=== PATIENT | female | born 1960 | race Caucasian/White ===

== ENCOUNTER 2017-07-03 20:49 | Emergency (ER) | payer MEDICAID ==
[~2017-07-03] VITALS: Ht 160 cm; Wt 85.0 kg
[~2017-07-03 20:49] MED LIST: MULT-1085 PO; POLY17PO10 PO
[2017-07-03 21:03] VITALS: BP 148/74
[2017-07-03] MEDS ORDERED: ipratropium/albuterol 3ml nebule NEB ONE (21:55)
[2017-07-03] MEDS ORDERED: ALBU6.7H INH (22:38)
[2017-07-03] MEDS ORDERED: AMOX-422 PO (22:38)
[2017-07-03] MEDS ORDERED: PRED20TA PO (22:38)
== END 2017-07-03 22:45 | disposition home or self-care (01) ==
LOC: ER 20:50
DX: J20.9 Acute bronchitis, unspecified (principal); F17.200 Nicotine dependence, unspecified, uncomplicated; Z79.899 Other long term (current) drug therapy
CPT/HCPCS: 71046; 94640; 94760; 99284

== ENCOUNTER 2020-06-27 22:23 | Emergency (ER) | payer MEDICAID, OTHER ==
[~2020-06-27] VITALS: Ht 160 cm; Wt 90.9 kg
[~2020-06-27 22:23] MED LIST changes: +ALBU6.7H9 INH
[2020-06-27 23:21] LABS: CLARITY,URINE CLEAR (Clear); COLOR,URINE YELLOW (Yellow); GLUCOSE, URINE NEGATIVE (Neg); KETONES,URINE NEGATIVE (Neg); LEUKOCYTE ESTERASE ,URINE SMALL (Neg); NITRITES, URINE NEGATIVE (Neg); OCCULT BLOOD,URINE SMALL (Neg); PH,URINE 6.5 (4.8-8.0); PROTEIN,URINE TRACE mg/dl (Neg)
[2020-06-27 23:26] LABS: UA COLLECTION TYPE CLN CATCH MIDSTREAM
[2020-06-27 23:27] LABS: BACTERIA,URINE FEW /HPF (Neg); SQUAMOUS EPITHELIAL CELL,UR FEW /LPF (FEW); WBC,URINE 0-4 /HPF (0-4)
[2020-06-27 23:51] LABS: BASOPHILS # (AUTO) 0.1 X10'3 (0-0.2); BASOPHILS % (AUTO) 0.5 % (0-1); EOSINOPHILS # (AUTO) 0.3 X10'3 (0-0.9); EOSINOPHILS % (AUTO) 2.3 % (0-6); HEMATOCRIT 36.5 % (35.0-45.0); HEMOGLOBIN 12.1 g/dl (12.0-16.0); LYMPHOCYTES # (AUTO) 2.1 X10'3 (1.1-4.8); LYMPHOCYTES % (AUTO) 17.8 % (21-51); MEAN CORPUSCULAR HEMOGLOBIN 29.8 PG (27.0-31.0); MEAN CORPUSCULAR HGB CONC 33.2 g/dL (33.0-36.5); MEAN CORPUSCULAR VOLUME 89.8 FL (78-98); MEAN PLATELET VOLUME 6.8 FL (7.4-10.4); MONOCYTES # (AUTO) 1.3 X10'3 (0-0.9); NEUTROPHILS % (AUTO) 68.4 % (42-75); PLATELET COUNT 339 X10'3 (140-440); RED BLOOD COUNT 4.07 X10'6 (4.20-5.60); RED CELL DISTRIBUTION WIDTH 13.6 % (11.5-14.5); WHITE BLOOD COUNT 11.7 X10'3 (4.5-11.0)
[2020-06-27 23:58] LABS: ALANINE AMINOTRANSFERASE 21 U/L (12-78); ALBUMIN 3.3 G/DL (3.4-5.0); ALBUMIN/GLOBULIN RATIO 0.8 (1.1-1.5); ALKALINE PHOSPHATASE 91 IU/L (46-116); ANION GAP 6 (8-16); ASPARTATE AMINO TRANSFERASE 13 U/L (10-37); BILIRUBIN,TOTAL 0.4 MG/DL (0.1-1.0); BLOOD UREA NITROGEN 19 MG/DL (7-18); BUN/CREATININE RATIO 14.8 (6.6-38.0); CALCIUM 8.7 MG/DL (8.5-10.1); CHLORIDE 102 MMOL/L (99-107); CREATININE 1.28 MG/DL (0.40-0.90); GLUCOSE 105 MG/DL (70-104); POTASSIUM 3.9 MMOL/L (3.5-5.1); SODIUM 136 MMOL/L (135-145); TOTAL CARBON DIOXIDE 28.1 MMOL/L (24-32); TOTAL PROTEIN 7.3 G/DL (6.4-8.2); eGFR 42 ML/MIN
[2020-06-28] MEDS ORDERED: MUPI22OI30 TOP (00:48)
[2020-06-28] MEDS ORDERED: CEPH-585 PO (00:48)
[2020-06-28] MEDS ORDERED: mupirocin 2% ointment 22GM TP STA (00:49)
[2020-06-28] MEDS ORDERED: cephalexin 500mg capsule PO ONE (00:50)
[2020-06-28 01:17] VITALS: BP 103/67
== END 2020-06-28 01:34 | disposition home or self-care (01) ==
LOC: ER 22:24
DX: L03.115 Cellulitis of right lower limb (principal); L01.00 Impetigo, unspecified; M79.661 Pain in right lower leg; Z79.2 Long term (current) use of antibiotics; Z79.899 Other long term (current) drug therapy
CPT/HCPCS: 36415; 71045; 80053; 81001; 84145; 85025; 87040; 87088; 99284

== ENCOUNTER 2021-01-12 04:51 | Emergency (ER) | payer MEDICAID ==
[~2021-01-12] VITALS: Ht 160 cm; Wt 79.0 kg
[2021-01-12 04:55] VITALS: BP 142/81
[2021-01-12] MEDS ORDERED: CEPH-585 PO (22:24)
[2021-01-12] MEDS ORDERED: SULF1TAB49 PO (22:24)
== END 2021-01-12 08:29 | disposition left against medical advice (07) ==
LOC: ER 04:52
DX: M79.89 Other specified soft tissue disorders (principal); Z53.21 Procedure and treatment not carried out due to patient leaving prior to being seen by health care provider

== ENCOUNTER 2021-01-12 20:13 | Emergency (ER) | payer MEDICAID ==
[~2021-01-12] VITALS: Ht 160 cm; Wt 79.5 kg
[2021-01-12] MEDS ORDERED: SULF1TAB49 PO (22:24)
[2021-01-12] MEDS ORDERED: CEPH-585 PO (22:24)
[2021-01-12] MEDS ORDERED: vancomycin/NS 1 GM ADD-VANTAGE 250 ML IV ONE (22:25)
[2021-01-12] MEDS ORDERED: CefTRIAXone 2gm/D5W 50ml BAG 50 ML IV ONE (22:25)
[2021-01-12] MEDS ORDERED: TETanus/Pertussis (Acell)/Diphther VAC/PF (Tdap-Adult) 0.5ml syringe IMVAC ONE (22:25)
[2021-01-12] MEDS ORDERED: bacitracin 15gm ointment TP ONE (22:25)
[2021-01-13 01:19] VITALS: BP 127/78
== END 2021-01-13 01:21 | disposition home or self-care (01) ==
LOC: ER 20:15
DX: L03.116 Cellulitis of left lower limb (principal); L03.115 Cellulitis of right lower limb; Z20.3 Contact with and (suspected) exposure to rabies; Z79.2 Long term (current) use of antibiotics
CPT/HCPCS: 90471; 90715; 96365; 96366; 96368; 99284; J0696; J3370

== ENCOUNTER 2021-04-29 16:40 | Emergency (ER) | payer MEDICAID ==
[~2021-04-29] VITALS: Ht 160 cm; Wt 82.7 kg
[~2021-04-29 16:40] MED LIST changes: -ALBU6.7H9 INH; +CEPH-585 PO; -MULT-1085 PO; -POLY17PO10 PO
[2021-04-29 17:33] LABS: BASOPHILS % (AUTO) 0.4 % (0-1); EOSINOPHILS # (AUTO) 0.2 X10'3 (0-0.9); EOSINOPHILS % (AUTO) 2.2 % (0-6); HEMATOCRIT 32.3 % (35.0-45.0); LYMPHOCYTES # (AUTO) 0.9 X10'3 (1.1-4.8); LYMPHOCYTES % (AUTO) 11.4 % (21-51); MEAN CORPUSCULAR HEMOGLOBIN 29.2 PG (27.0-31.0); MEAN CORPUSCULAR HGB CONC 34.2 g/dL (33.0-36.5); MEAN CORPUSCULAR VOLUME 85.6 FL (78-98); MEAN PLATELET VOLUME 6.2 FL (7.4-10.4); MONOCYTES # (AUTO) 0.5 X10'3 (0-0.9); MONOCYTES % (AUTO) 6.4 % (2-12); NEUTROPHILS # (AUTO) 5.9 X10'3 (1.8-7.7); NEUTROPHILS % (AUTO) 79.6 % (42-75); PLATELET COUNT 581 X10'3 (140-440); RED BLOOD COUNT 3.77 X10'6 (4.20-5.60); RED CELL DISTRIBUTION WIDTH 13.6 % (11.5-14.5); WHITE BLOOD COUNT 7.5 X10'3 (4.5-11.0)
[2021-04-29 17:39] LABS: APTT 29 SECONDS (22-32)
[2021-04-29 17:44] LABS: ALANINE AMINOTRANSFERASE 23 U/L (12-78); ALBUMIN 3.3 G/DL (3.4-5.0); ALBUMIN/GLOBULIN RATIO 0.6 (1.1-1.5); ALKALINE PHOSPHATASE 103 IU/L (46-116); ANION GAP 11 (8-16); ASPARTATE AMINO TRANSFERASE 13 U/L (10-37); BILIRUBIN,TOTAL 0.4 MG/DL (0.1-1.0); BLOOD UREA NITROGEN 12 MG/DL (7-18); BUN/CREATININE RATIO 11.2 (6.6-38.0); CALCIUM 8.9 MG/DL (8.5-10.1); CHLORIDE 102 MMOL/L (99-107); CREATININE 1.07 MG/DL (0.40-0.90); GLUCOSE 107 MG/DL (70-104); SODIUM 138 MMOL/L (135-145); TOTAL CARBON DIOXIDE 25.5 MMOL/L (24-32); TOTAL PROTEIN 8.4 G/DL (6.4-8.2); eGFR 52 ML/MIN
[2021-04-29 17:50] VITALS: BP 130/71
[2021-04-29] MEDS ORDERED: sulfamethoxazole/trimethoprim DS (800/160mg) tablet PO ONE (18:00)
[2021-04-29] MEDS ORDERED: cephalexin 500mg capsule PO ONE (18:00)
[2021-04-29] MEDS ORDERED: SULF1TAB45 PO (18:11)
[2021-04-29] MEDS ORDERED: CEPH-585 PO (18:11)
== END 2021-04-29 18:21 | disposition home or self-care (01) ==
LOC: ER 16:40
DX: L03.116 Cellulitis of left lower limb (principal); L03.115 Cellulitis of right lower limb; M79.661 Pain in right lower leg; M79.662 Pain in left lower leg; Z79.2 Long term (current) use of antibiotics
CPT/HCPCS: 36415; 80053; 85025; 85610; 85730; 99283

== ENCOUNTER 2023-05-10 23:45 | Emergency (ER) | payer MEDICAID, MEDICARE ==
[~2023-05-10] VITALS: Ht 160 cm; Wt 65.2 kg
[2023-05-10 23:49] VITALS: BP 140/75; PULSE 92; RESP 18; TEMP 98.1; O2SAT 96
== END 2023-05-11 02:40 | disposition left against medical advice (07) ==
LOC: ER 23:46
DX: N81.10 Cystocele, unspecified (principal); Z53.21 Procedure and treatment not carried out due to patient leaving prior to being seen by health care provider
CPT/HCPCS: 99281

== ENCOUNTER 2023-07-26 22:02 | Emergency (ER) | payer MEDICARE | END 2023-07-27 00:42 | disposition left against medical advice (07) | LOC: ER 22:02 | DX: R39.89 Other symptoms and signs involving the genitourinary system (principal); Z53.21 Procedure and treatment not carried out due to patient leaving prior to being seen by health care provider ==